=== PATIENT | female | born 1940 | race Caucasian/White ===

== ENCOUNTER → 2017-09-13 | Outpatient (CLI) | payer OTHER ==
--- NOTE | 2017-09-13 13:46 | CPEKG ---
Heart Rate: 99 RR Interval: 606 P-R Interval: 212 QRSD Interval: 120 QT Interval: 384 QTC Interval: 493 P [place]: 80 QRS [place]: 16 T Wave [place]: 103 EKG Severity - ABNORMAL ECG - EKG Impression: SINUS RHYTHM EKG Impression: VENTRICULAR BIGEMINY EKG Impression: INCOMPLETE LEFT BUNDLE BRANCH BLOCK Electronically Signed By: Richa Gutierrez 13-Sep-2017 18:05:15
== END ==
LOC: BCP 13:40
PROVIDERS: ATTEND Internal Medicine Nephrology
DX: R00.0 Tachycardia, unspecified (principal); I44.69 Other fascicular block

== ENCOUNTER 2018-09-20 16:14 | Emergency (ER) | payer OTHER | END 2018-09-20 18:40 | disposition home or self-care (01) ==